=== PATIENT | male | born 1995 | race Hispanic/Latino ===

== ENCOUNTER 2023-09-26 09:52 | Emergency (ER) | payer OTHER ==
[~2023-09-26] VITALS: Ht 180.3 cm; Wt 99.8 kg
[2023-09-26 09:53] VITALS: BP 114/73; PULSE 116; RESP 18
[2023-09-26] MEDS ORDERED: ACETAMINOPHEN 500 MG TABLET PO ONE (10:00)
[2023-09-26 10:03] VITALS: TEMP 103
[2023-09-26 10:34] LABS: RAPID GROUP A STREP negative (NEGATIVE)
[2023-09-26 10:39] LABS: SARS-CoV-2, RNA, NAAT NEGATIVE SARS CoV-2 (NEGATIVE)
[2023-09-26 10:44] LABS: INFLUENZA TYPE A Negative For Type A (NEGATIVE)
[2023-09-26 10:50] LABS: INFLUENZA TYPE B Positive For Type B (NEGATIVE)
[2023-09-26] MEDS ORDERED: OSEL75 PO (11:08)
[2023-09-26] MEDS ORDERED: BENZ-39 PO (11:08)
== END 2023-09-26 11:22 | disposition home or self-care (01) ==
LOC: EDH 09:52
DX: J10.1 Influenza due to other identified influenza virus with other respiratory manifestations (principal); R50.9 Fever, unspecified; Z20.822 Contact with and (suspected) exposure to COVID-19; Z79.899 Other long term (current) drug therapy
CPT/HCPCS: 71045; 87635; 87804; 87880